=== PATIENT | male | born 1950 | race Caucasian/White ===

== ENCOUNTER 2018-07-27 21:46 | Emergency (ER) | payer BC, OTHER ==
[~2018-07-27] VITALS: Ht 190.5 cm; Wt 108.0 kg
[2018-07-28 00:11] VITALS: BP 132/76
== END 2018-07-27 23:40 | disposition home or self-care (01) ==
LOC: ER 21:46
DX: S01.01XA Laceration without foreign body of scalp, initial encounter (principal); W18.09XA Striking against other object with subsequent fall, initial encounter; Y93.89 Activity, other specified; Y92.89 Other specified places as the place of occurrence of the external cause; Y99.8 Other external cause status